=== PATIENT | male | born 1970 | race Caucasian/White ===

== ENCOUNTER 2019-04-02 08:49 | Emergency (ER) | payer SELFPAY ==
[~2019-04-02] VITALS: Ht 177.8 cm; Wt 74.8 kg
[~2019-04-02 08:49] MED LIST: ACET325T9 PO; CALC-104 PO; HUM100VI SQ; INSU100V5 SQ; NAPR-514 PO; NPH,100V SQ; OXYC1TAB15 PO; RANI-376 PO; TRAM50TA PO
[2019-04-02 08:55] VITALS: BP 112/80
--- NOTE | 2019-04-02 09:31 | PHYS DOC ---
Past Medical History Past Medical History: Anxiety, Diabetes-Type II, IBS, Other Additional Past Medical Histor: CHRONIC PAIN Past Surgical History: Other Additional Past Surgical Histo: ANKLE/ARMS/WRIST Additional Information: 1.5 PPD Alcohol Use: None Drug Use: Marijuana Adult General Chief Complaint Chief Complaint: ABDOMINAL PAIN [facility] HPI Patient is a 48 year old male patient with history of anxiety, IBS, type 2 diabetes mellitus who presents with complaints of abdominal pain. Patient states he has had bulging in one of his abdomen for 2 months with pain and nausea and was seen by his primary care physician and had ultrasound that showed gallbladder sludge and is in the waiting list for surgery at [facility] that may be takes about 6-9 months but he cannot wait because his pain is a constant sharp pain for the last 2 months and rated his pain 10 over 10. Patient states he took hydrocodone 7.5 mg given by his physician yesterday without change of his pain and rated his pain as a severe pain at arrival to ER. Patient appearing of intermittent episodes of diarrhea and constipation related to his IBS and denies fever and chills, urinary symptom, chest pain, shortness of breath. Patient denies using drugs and states he drink alcohol occasionally. Review of Systems Review of Systems Constitutional: Denies fever or chills [] Eyes: Denies change in visual acuity, redness, or eye pain [] HENT: Denies nasal congestion or sore throat [] Respiratory: Denies cough or shortness of breath [] Cardiovascular: No additional information not addressed in HPI [] GI: Reports abdominal pain, nausea, vomiting, constipation, diarrhea [] : Denies dysuria or hematuria [] Musculoskeletal: Denies back pain or joint pain [] Integument: Denies rash or skin lesions [] Neurologic: Denies headache, focal weakness or sensory changes [] Endocrine: Denies polyuria or polydipsia [] All other systems were reviewed and found to be within normal limits, except as documented in this note. Allergies Allergies Allergies Coded Allergies Type Severity Reaction Last Updated Verified No Known Drug Allergies 05/15/14 No Physical Exam Physical Exam Constitutional: Well developed, well nourished, mild distress, non-toxic appearance. [] HENT: Normocephalic, atraumatic, oropharynx mucosa is moist. Eyes: PERRLA, EOMI, conjunctiva normal, no discharge. [] Neck: Normal range of motion, no tenderness, supple, no stridor. [] Cardiovascular:Heart rate regular rhythm, no murmur [] Lungs & Thorax: Bilateral breath sounds clear to auscultation [] Abdomen: Bowel sounds normal, weakness of right upper abdominal muscle with mild bulging without hernia , no tenderness, no masses, no pulsatile masses. [] Skin: Warm, dry, no erythema, no rash. [] Back: No tenderness, no CVA tenderness. [] Extremities: No tenderness, no cyanosis, no clubbing, ROM intact, no edema. [] Neurologic: Alert and oriented X 3, no focal deficits noted. [] Psychologic: Affect anxious, judgement normal, mood normal. [] Current Patient Data Vital Signs Vital Signs Date Time Temp Pulse Resp B/P (MAP) Pulse Ox O2 Delivery O2 Flow Rate FiO2 04/02/19 08:55 98.3 81 17 112/80 (91) 96 Room Air 98.3 EKG EKG [] Radiology/Procedures Radiology/Procedures [] Course & Med Decision Making Course & Med Decision Making Evaluation of patient in ER showed 48-year-old male patient with complaining of chronic right upper quadrant pain for more than 2 months in waiting surgery list at [facility] with complaining of pain and nausea that does not getting better with hydrocodone. Patient had weakness of muscle of right upper quadrant with mild bulging. Patient did not have jaundice. I explained to the patient that we can pain test and CT of abdomen but most likely he is not a candidate for emergency admission for surgery because of his physical finding and chronic abdominal pain. Patient became upset and left AMA without signing the form. Dragon Disclaimer Dragon Disclaimer This electronic medical record was generated, in whole or in part, using a voice recognition dictation system. Departure Departure Impression: Primary Impression: Chronic abdominal pain Additional Impression: Left against medical advice Disposition: 07 AGAINST MEDICAL ADVICE Condition: STABLE Referrals: UNKNOWN PCP NAME (PCP) Problem Qualifiers PHILIP NAQVI MD Apr 02, 2019 09:31
== END 2019-04-02 09:32 | disposition left against medical advice (07) ==
LOC: ER 08:49
DX: G89.29 Other chronic pain (principal); R10.11 Right upper quadrant pain; F41.9 Anxiety disorder, unspecified; E11.9 Type 2 diabetes mellitus without complications; Z87.19 Personal history of other diseases of the digestive system; F12.90 Cannabis use, unspecified, uncomplicated; Z98.890 Other specified postprocedural states
CPT/HCPCS: 99281